=== PATIENT | female | born 1985 | race Caucasian/White ===

== ENCOUNTER 2020-04-28 07:26 | Emergency (ER) | payer OTHER ==
[~2020-04-28] VITALS: Ht 175.3 cm; Wt 78.6 kg
[2020-04-28 08:12] LABS: BASOPHILS % (AUTO) 0.3 % (0-1); EOSINOPHILS % (AUTO) 0.2 % (0-6); HEMATOCRIT 41.4 % (35.0-45.0); LYMPHOCYTES # (AUTO) 1.1 X10'3 (1.1-4.8); LYMPHOCYTES % (AUTO) 10.6 % (21-51); MEAN CORPUSCULAR HEMOGLOBIN 31.1 PG (27.0-31.0); MEAN CORPUSCULAR HGB CONC 33.9 g/dL (33.0-36.5); MEAN CORPUSCULAR VOLUME 91.9 FL (78-98); MEAN PLATELET VOLUME 8.3 FL (7.4-10.4); MONOCYTES # (AUTO) 0.5 X10'3 (0-0.9); MONOCYTES % (AUTO) 4.5 % (2-12); NEUTROPHILS # (AUTO) 8.8 X10'3 (1.8-7.7); NEUTROPHILS % (AUTO) 84.4 % (42-75); PLATELET COUNT 259 X10'3 (140-440); RED CELL DISTRIBUTION WIDTH 12.8 % (11.5-14.5); WHITE BLOOD COUNT 10.5 X10'3 (4.5-11.0)
[2020-04-28] MEDS ORDERED: ondansetron/PF 4mg/2ml inj IV ONE (08:15)
[2020-04-28] MEDS ORDERED: normal saline 1000ML IV soln IVB ONE (08:15)
[2020-04-28] MEDS ORDERED: morphine 4 MG/ML inj SYRINge IV PRN (08:15)
[2020-04-28 08:20] LABS: URINE HCG NEGATIVE (NEG)
[2020-04-28 08:27] LABS: ALANINE AMINOTRANSFERASE 28 U/L (12-78); ALBUMIN 4.2 G/DL (3.4-5.0); ALBUMIN/GLOBULIN RATIO 1.1 (1.1-1.5); ALKALINE PHOSPHATASE 67 IU/L (46-116); ANION GAP 8 (8-16); ASPARTATE AMINO TRANSFERASE 17 U/L (10-37); BILIRUBIN,TOTAL 0.3 MG/DL (0.1-1.0); BLOOD UREA NITROGEN 11 MG/DL (7-18); BUN/CREATININE RATIO 12.4 (6.6-38.0); CALCIUM 9.5 MG/DL (8.5-10.1); CHLORIDE 106 MMOL/L (99-107); CREATININE 0.89 MG/DL (0.40-0.90); GLUCOSE 161 MG/DL (70-104); LIPASE 117 U/L (73-393); POTASSIUM 4.1 MMOL/L (3.5-5.1); SODIUM 143 MMOL/L (135-145); TOTAL CARBON DIOXIDE 28.7 MMOL/L (24-32); TOTAL PROTEIN 7.9 G/DL (6.4-8.2); eGFR 72 ML/MIN
[2020-04-28 08:31] LABS: CLARITY,URINE SLIGHTLY CLOUDY (Clear); COLOR,URINE YELLOW (Yellow); GLUCOSE, URINE NEGATIVE (Neg); KETONES,URINE TRACE mg/dl (Neg); LEUKOCYTE ESTERASE ,URINE MODERATE (Neg); NITRITES, URINE NEGATIVE (Neg); OCCULT BLOOD,URINE NEGATIVE (Neg); PH,URINE >=9.0 (4.8-8.0); PROTEIN,URINE TRACE mg/dl (Neg); UROBILINOGEN,URINE 0.2 E.U/dL (0.2-1.0)
[2020-04-28 08:32] LABS: UA COLLECTION TYPE CLN CATCH MIDSTREAM
[2020-04-28 08:39] LABS: SQUAMOUS EPITHELIAL CELL,UR MANY /LPF (FEW)
[2020-04-28 08:41] LABS: BACTERIA,URINE 3+ /HPF (Neg)
[2020-04-28 08:42] LABS: RBC,URINE 0-2 /HPF (0-2); WBC,URINE TNTC /HPF (0-4)
[2020-04-28 08:43] LABS: AMORPHOUS PHOSPHATES 1+
[2020-04-28] MEDS ORDERED: famotidine/PF 10 mg/ml inj IV ONE (09:05)
[2020-04-28] MEDS ORDERED: metoclopramide 5 mg/ml inj IV ONE (09:50)
[2020-04-28] MEDS ORDERED: SUCR1TAB34 PO (10:42)
[2020-04-28] MEDS ORDERED: PANT-47 PO (10:42)
[2020-04-28 10:46] VITALS: BP 120/80
== END 2020-04-28 11:03 | disposition home or self-care (01) ==
LOC: ER 07:27
DX: R10.13 Epigastric pain (principal); R10.11 Right upper quadrant pain; R10.12 Left upper quadrant pain; R11.2 Nausea with vomiting, unspecified; R19.7 Diarrhea, unspecified; Z88.0 Allergy status to penicillin
CPT/HCPCS: 36415; 76700; 80053; 81001; 81025; 83690; 85025; 96374; 96375; 99284; J2270; J2405; J2765; J3490; J7030